=== PATIENT | female | born 1990 | race African-American/Black ===

== ENCOUNTER 2018-04-14 16:14 | Emergency (ER) | payer OTHER ==
--- NOTE | 2018-04-14 18:21 | ED ---
Abdominal Pain/Female - HPI Summary HPI Summary: This is scribdimas Alvarez documenting for attending Atilio Amor MD. Patient is a 27 y/o F w/ c/o left side abdominal and left side pelvic pain onsetting a week ago with worse pain onsetting today. Pain is rated 8/10 in the room and radiates to her back. She reports getting nauseous frequently, but does not describe this as abnormal. She denies vomiting, vaginal discharge, and vaginal bleeding. Last bowel movement was today. LNMP was 03/20/18, she reports her last time being sexually active as two weeks ago, and notes she is unsure if she is or not. On triage, nothing is noted to aggravate/alleviate Sx. Patient also reports ear pain. On triage, neck pain, hot flashes, cold flashes are reported as well but the patient does not discuss these Sx in the room. She claims Hx of ovarian cysts. No PSHx is noted. FHx of asthma, HTN, diabetes is stated. Patient notes she smokes but is trying to quit, denies alcohol and drug use. Home medications and allergies are reviewed. - History of Current Complaint Chief Complaint: EDGeneral Stated Complaint: NECK AND ABD PAIN Time Seen by Provider: 04/14/18 17:59 Hx Obtained From: Patient Hx Last Menstrual Period: 03/20/18 ?: No - patient is unsure Onset/Duration: Lasting Weeks - onset a week ago, Worse Since - worse pain reported today Timing: Constant Severity Initially: Moderate Severity Currently: Severe Pain Intensity: 7 Pain Scale Used: 0-10 Numeric - 7/10 Location: Other - leftside abdominal pain and pelvic pain Radiates: Yes Radiates to: Back Aggravating Factor(s): Nothing Alleviating Factor(s): Nothing Associated Signs and Symptoms: Positive: Back Pain, Nausea - not described as abnormal, Other: - leftside abdominal pain, leftside pelvic pain, ear pain, neck pain, hot flashes, cold flashes. Negative: Vaginal Bleeding, Vaginal Discharge, Vomiting Allergies/Adverse Reactions: Allergies Allergy/AdvReac Type Severity Reaction Status Date / Time peanut Allergy Rash And Verified 04/14/18 17:57 Itching Home Medications: Home Medications NK [No Home Medications Reported] 04/14/18 [History Confirmed 04/14/18] PMH/Surg Hx/FS Hx/Imm Hx Endocrine/Hematology History: Reports: Hx Anemia Denies: Hx Diabetes, Hx Unexplained Bleeding Cardiovascular History: Denies: Hx Congestive Heart Failure, Hx Hypertension Respiratory History: Reports: Hx Asthma History: Reports: Other Problems/Disorders - ovarian cysts Denies: Hx Dialysis, Hx Renal Disease Sensory History: Reports: Hx Contacts or Glasses Opthamlomology History: Reports: Hx Contacts or Glasses - Surgical History Surgery Procedure, Year, and Place: reports none Infectious Disease History: No Infectious Disease History: Denies: Traveled Outside the [place] in Last 30 Days - Family History Known Family History: Positive: Hypertension, Diabetes, Respiratory Disease - asthma , Other - pancreatic cancer Family History: R & n/C - Social History Alcohol Use: Occasionally Hx Substance Use: No Substance Use Type: Reports: None Hx Tobacco Use: Yes Smoking Status (MU): Light Every Day Tobacco Smoker Type: Cigarettes Review of Systems Positive: Other - hot flashes, cold flashes Positive: Ear Ache - ear pain Positive: Abdominal Pain - leftside, Nausea - not described as abnormal . Negative: Vomiting Positive: other - POSITIVE: left-sided pelvic pain NEGATIVE: vaginal discharge/ bleeding Positive: Other - back pain, neck pain All Other Systems Reviewed And Are Negative: Yes Physical Exam - Summary Physical Exam Summary: VITAL SIGNS: Reviewed. GENERAL: Patient is a well-developed and nourished female who is lying comfortable in the stretcher. Patient is not in any acute respiratory distress. HEAD AND FACE: No signs of trauma. No ecchymosis, hematomas or skull depressions. No sinus tenderness. EYES: PERRLA, EOMI x 2, No injected conjunctiva, no nystagmus. EARS: Hearing grossly intact. Ear canals and tympanic membranes are within normal limits. MOUTH: Oropharynx within normal limits. NECK: Supple, trachea is midline, no adenopathy, no JVD, no carotid bruit, no c- spine tenderness, neck with full ROM. CHEST: Symmetric, no tenderness at palpation LUNGS: Clear to auscultation bilaterally. No wheezing or crackles. CVS: Regular rate and rhythm, S1 and S2 present, no murmurs or gallops appreciated. ABDOMEN: Soft, non-tender. No signs of distention. No rebound no guarding, and no masses palpated. Bowel sounds are normal. PELVIS: Left-side pelvic pain is noted, all else normal. EXTREMITIES: FROM in all major joints, no edema, no cyanosis or clubbing. NEURO: Alert and oriented x 3. No acute neurological deficits. Speech is normal and follows commands. SKIN: Dry and warm Triage Information Reviewed: Yes Vital Signs On Initial Exam: Initial Vitals Temp Pulse Resp BP Pulse Ox 97.7 F 71 16 103/71 98 04/14/18 16:17 04/14/18 16:17 04/14/18 16:17 04/14/18 16:17 04/14/18 16:17 Vital Signs Reviewed: Yes Diagnostics - Vital Signs Vital Signs Temp Pulse Resp BP Pulse Ox 04/14/18 16:17 97.7 F 71 16 103/71 98 - Laboratory Result Diagrams: 04/14/18 18:25 04/14/18 18:24 Lab Statement: Any lab studies that have been ordered have been reviewed, and results considered in the medical decision making process. - Ultrasound No standard instances Ultrasound Interpretation Completed By: Radiologist - Transvaginal US: Involuting follicle left ovary. Trace amount of free fluid in the cul-de-sac. Blood flow is noted in both ovaries. Re-Evaluation - Re-Evaluation First Eval Re-Evaluation Time: 20:31 Change: Improved Comment: Sx of patient have greatly improved. Discussed results of tests and labs with patient. Follow-up plan is to be discharged to home and visit PCP within 3 days. Patient is agreeable with plan. Abdominal Pain Fem Course/Dx - Course Course Of Treatment: Blood test results without any significant abnormality. Urinalysis is contaminated. Therefore we will send urine for cultures. Pelvic ultrasound impression: involuting follicle of the left ovary. Trace amount of free fluid in the cul-de-sac. Blood flow is noted in both ovaries. At this point I discussed my physical exam, findings and test results with the patient and I offered a pelvic exam. The patient reports that she doesn't have any vaginal discharge or bleeding therefore she declined a pelvic exam. I also offered an abdominal and pelvic CT but patient declines. She reports she is feeling better. In the ED course the patient was given Toradol for pain and the symptoms have significantly improved. At this point the patient reports that the pain is subsided. Therefore the patient will be discharged home with follow-up with primary care physician. I discussed all the findings and test results with the patient. Patient was instructed to return to the emergency room immediately if any of the symptoms return or worsens. They were explained the possibility of an early abdominal pathology which was not detected at this time despite the physical exam and testing. They understand and agree. Abdominal exam before discharge: Soft, NT. No signs of distention. BS present. No rebound no guarding, and no masses palpated. Patient is alert and oriented and hemodynamically stable. Patient is to follow up with primary care physician in the next 2 to 3 days. Patient agree and understands. - Diagnoses Differential Diagnosis: Positive: Constipation, Diverticulitis, Ovarian Cyst, , Renal Colic, Urinary Tract Infection Provider Diagnoses: Pelvic pain Discharge - Sign-Out/Discharge Documenting (check all that apply): Patient Departure - discharge - Discharge Plan Condition: Stable Disposition: HOME Patient Education Materials: Ovarian Cyst (ED) Referrals: Nino Zapata MD [Primary Care Provider] - 3 Days Additional Instructions: Return to ED for any new or worsening symptoms. - Billing Disposition and Condition Condition: STABLE Disposition: Home
[2018-04-14 18:33] LABS: ABS Basophils 0 10^3/ul (0-0.2); ABS Eosinophils 0.2 10^3/ul (0-0.6); ABS Lymphocytes 2.5 10^3/ul (1.0-4.8); ABS Monocytes 0.5 10^3/ul (0-0.8); ABS Nucleated RBC 0 10^3/ul; Eosinophil % 2.8 % (0-6); Hematocrit 37 % (35-47); Lymphocyte % 34.8 % (25-47); Mean Corpuscular HGB Conc 35 g/dl (31-36); Mean Corpuscular Hemoglobin 32 pg (27-31); Mean Corpuscular Volume 91 fL (80-97); Nucleated Red Blood Cells % 0.2; Platelet Count 196 10^3/ul (150-450); Red Blood Count 4.08 10^6/ul (4.00-5.40); Red Cell Distribution Width 12 % (10.5-15); White Blood Count 7.3 10^3/ul (3.5-10.8)
[2018-04-14 18:54] LABS: Urine Appearance Cloudy; Urine Blood Negative (Negative); Urine Color Yellow; Urine Ketones Negative (Negative); Urine Protein Negative (Negative); Urine Red Blood Cell 1+(3-5/hpf) (Absent); Urine Specific Gravity 1.013 (1.010-1.030); Urine Urobilinogen Negative (Negative); Urine White Blood Cell 1+(6-10/hpf) (Absent)
--- NOTE | 2018-04-14 19:00 | RAD ---
Indication: Left lower quadrant pain. Real-time sonography of the pelvis was performed. The uterus measures 7.8 x 5.4 x 5.7 cm and is retroverted. Endometrial echo measures up to 13 mm. This is likely due to the phase of the patient's menstrual cycle. Trace free fluid is noted in the cul-de-sac. The right ovary measures 3.7 x 1.4 x 1.4 cm. The left ovary measures 4.7 x 2.7 x 3.3 cm. Complex involuting follicle is noted in the left ovary measuring up to 2.4 cm. Doppler interrogation demonstrates blood flow in both ovaries. IMPRESSION: Involuting follicle left ovary. Trace amount of free fluid in the cul-de-sac. Blood flow is noted in both ovaries.
[2018-04-14 19:23] LABS: EGFR Non-African American 87.4 (>60)
[2018-04-14] MEDS ORDERED: Ketorolac INJ* 30 MG/ML 1 ML VIAL IV PUSH ONE (19:31)
[2018-04-14] MEDS ORDERED: Ketorolac INJ* 30 MG/ML 1 ML VIAL ONE (19:33)
[2018-04-14 21:16] VITALS: BP 106/74
== END 2018-04-14 21:16 | disposition home or self-care (01) ==
LOC: ED 16:14
DX: R10.2 Pelvic and perineal pain (principal); M54.9 Dorsalgia, unspecified; R11.0 Nausea; H92.09 Otalgia, unspecified ear; M54.2 Cervicalgia; R68.83 Chills (without fever); N83.02 Follicular cyst of left ovary; Z91.010 Allergy to peanuts; Z82.49 Family history of ischemic heart disease and other diseases of the circulatory system; Z83.3 Family history of diabetes mellitus; Z82.5 Family history of asthma and other chronic lower respiratory diseases; Z80.0 Family history of malignant neoplasm of digestive organs; F17.210 Nicotine dependence, cigarettes, uncomplicated
CPT/HCPCS: 36415; 76830; 80053; 81003; 81015; 83690; 84702; 85025; 86140; 87086; 96374; 99283; J1885

== ENCOUNTER 2018-10-01 16:56 | Emergency (ER) | payer OTHER ==
[2018-10-01] MEDS ORDERED: NS 0.9% 1000 ML* 1,000 ML IV ONE (17:16)
--- NOTE | 2018-10-01 17:18 | ED ---
Complex/Multi-Sys Presentation - HPI Summary HPI Summary: A 27 y/o F presents to ED with c/o R ear pain onset today. Associated sx: numbness to R-side of face, back pain, dizziness, mild post-nasal drip. Aggravating factor: deep breaths. Pt thought the back pain might be due to her menstrual cycle, but the pain is much worse than normal. Pt began her menstrual cycle this AM which started as bright red blood but now its darker. She also has L-sided abd pain and nausea. She has PMHx: ovarian cysts, anemia. Pt was at work today, when she became dizzy and felt she needed to come in to be evaluated. - History Of Current Complaint Chief Complaint: EDGeneral Time Seen by Provider: 10/01/18 17:10 Hx Obtained From: Patient Onset/Duration: Still Present Timing: Constant Severity Currently: Severe - 8 out of 10. Pt is laying in bed comfortably. Aggravating Factor(s): deep breaths Associated Signs And Symptoms: Positive: Dizziness, Nausea, Abdominal Pain, Back Pain, Other - pos: R ear pain; numbness to R side of face; post nasal drip - Allergies/Home Medications Allergies/Adverse Reactions: Allergies Allergy/AdvReac Type Severity Reaction Status Date / Time peanut Allergy Rash And Verified 10/01/18 17:03 Itching PMH/Surg Hx/FS Hx/Imm Hx Previously Healthy: No Endocrine/Hematology History: Reports: Hx Anemia - not taking Fe but supposed Denies: Hx Anticoagulant Therapy, Hx Blood Disorders, Hx Diabetes, Hx Sickle Cell Disease, Hx Thyroid Disease, Hx Unexplained Bleeding Cardiovascular History: Denies: Hx Congestive Heart Failure, Hx Hypertension Respiratory History: Reports: Hx Asthma Denies: Hx Seasonal Allergies History: Reports: Other Problems/Disorders - ovarian cysts Denies: Hx Dialysis, Hx Renal Disease Sensory History: Reports: Hx Contacts or Glasses Opthamlomology History: Reports: Hx Contacts or Glasses Neurological History: Reports: Hx Headaches - often, Hx Migraine - in only - Surgical History Surgery Procedure, Year, and Place: reports none Infectious Disease History: No Infectious Disease History: Denies: Traveled Outside the [place] in Last 30 Days - Family History Known Family History: Positive: Hypertension, Diabetes, Respiratory Disease - asthma , Other - pancreatic cancer - Social History Occupation: Employed Full-time Lives: With Family Alcohol Use: Occasionally Alcohol Amount: on weekends Hx Substance Use: No Substance Use Type: Reports: None Hx Tobacco Use: Yes Smoking Status (MU): Light Every Day Tobacco Smoker Type: Cigarettes Review of Systems Positive: Ear Ache - R, Other - pos: post nasal drip Positive: Abdominal Pain, Nausea Musculoskeletal: Other - pos: back pain Neurological: Other - pos: dizziness Positive: Numbness - to R side of face All Other Systems Reviewed And Are Negative: Yes Physical Exam - Summary Physical Exam Summary: VITAL SIGNS: Reviewed. GENERAL: Patient is a well-developed and nourished FEMALE who is lying comfortable in the stretcher. Patient is not in any acute respiratory distress. HEAD AND FACE: No signs of trauma. No ecchymosis, hematomas or skull depressions. No sinus tenderness. EYES: PERRLA, EOMI x 2, No injected conjunctiva, no nystagmus. EARS: Hearing grossly intact. Ear canals and tympanic membranes are within normal limits. MOUTH: Oropharynx within normal limits. NECK: Supple, trachea is midline, no adenopathy, no JVD, no carotid bruit, no c- spine tenderness, neck with full ROM. CHEST: Symmetric, no tenderness at palpation LUNGS: Clear to auscultation bilaterally. No wheezing or crackles. CVS: Regular rate and rhythm, S1 and S2 present, no murmurs or gallops appreciated. ABDOMEN: Soft, non-tender. No signs of distention. No rebound, no guarding, and no masses palpated. Bowel sounds are normal. EXTREMITIES: FROM in all major joints, no edema, no cyanosis or clubbing. NEURO: Alert and oriented x 3. No acute neurological deficits. Speech is normal and follows commands. SKIN: Dry and warm BURN OUT SCARFING OPERATOR: Female senior nurse manager (GENOVEVA Mixon) is present during the examination. External genitalia: within normal limits. No rashes, lesions or ecchymosis. Speculum exam : vaginal orozco with no lesions, masses, or rashes. Cervix normal. No CMTs. No adnexal masses. Small amount of old blood. Triage Information Reviewed: Yes Vital Signs On Initial Exam: Initial Vitals Temp Pulse Resp BP Pulse Ox 97.8 F 76 16 128/86 98 10/01/18 17:00 10/01/18 17:00 10/01/18 17:00 10/01/18 17:00 10/01/18 17:00 Vital Signs Reviewed: Yes Diagnostics - Vital Signs Vital Signs Temp Pulse Resp BP Pulse Ox 10/01/18 17:00 97.8 F 76 16 128/86 98 - Laboratory Result Diagrams: 10/01/18 17:31 10/01/18 17:31 Lab Statement: Any lab studies that have been ordered have been reviewed, and results considered in the medical decision making process. - Ultrasound No standard instances Ultrasound Interpretation Completed By: Radiologist Summary of Ultrasound Findings: IMPRESSION: Grossly normal pelvic ultrasound. ED provider has reviewed this report. Re-Evaluation - Re-Evaluation 1 Re-Evaluation Time: 18:46 Change: Unchanged Comment: Discussing results with pt and plan for discharge. Pt voiced understanding. Complex Multi-Symp Course/Dx Assessment/Plan: A 27 y/o F presents to ED with c/o R ear pain onset today. Associated sx: numbness to R-side of face, back pain, dizziness, mild post- nasal drip. Aggravating factor: deep breaths. Pt thought the back pain might be due to her menstrual cycle, but the pain is much worse than normal. Pt began her menstrual cycle this AM which started as bright red blood but now its darker. She also has L-sided abd pain and nausea. She has PMHx: ovarian cysts, anemia. Pt was at work today, when she became dizzy and felt she needed to come in to be evaluated. Test results are without any significant abnormality, potassium level is 3.3, beta hCG is negative for . Urinalysis is negative for UTI given. Influenza A and B is negative rapid strep is negative. Transvaginal ultrasound impression: gross pelvic ultrasound. Therefore believe that the patient may have menstrual cycle. In the ED course the patient was given IV fluids, Zofran for nausea and told for pain. In the ED course I believe that the patient has an upper respiratory tract infection. Therefore the patients mother given a prescription for Sudafed And she did take ibuprofen for pain or fever. I discussed all the findings and test results with the patient. Patient was instructed to return to the emergency room immediately if any of the symptoms return or worsens. Plan of care was discussed with the patient and understands and agrees. All questions were answered at patient satisfaction. There were no further complaints or concerns. Lung exam before discharge: CTA B/L. Good air exchange. No wheezing or crackles heard. CVS: S1 and S2 present. No murmurs appreciated. Patient is alert and oriented x 3. Patient is hemodynamically stable. Patient will be discharged home with follow up PCP in the next 2-3 day - Diagnoses Provider Diagnoses: URI, acute, Menses painful Discharge - Sign-Out/Discharge Documenting (check all that apply): Patient Departure - D/C - Discharge Plan Condition: Stable Disposition: HOME Prescriptions: Ibuprofen TAB* [Motrin TAB* 600 MG] 600 mg PO Q8H PRN #20 tab PRN Reason: Pain Pseudoephedrine HCL ER TAB* [Sudafed 12 Hour*] 120 mg PO BID #8 tab.er Patient Education Materials: Ibuprofen (By mouth), Pseudoephedrine (By mouth), Upper Respiratory Infection (ED), Menorrhagia (ED) Forms: *Work Release Referrals: Nino Zapata MD [Primary Care Provider] - 3 Days Additional Instructions: RETURN TO THE ED FOR ANY WORSENING OR NEW SYMPTOMS. - Billing Disposition and Condition Condition: STABLE Disposition: Home - Attestation Statements Document Initiated by Amosibdimas: Yes Documenting Scribe: Sandra Posada Provider For Whom Arden is Documenting (Include Credential): Dr. Atilio Amor MD Scribe Attestation: Sandra Cantrell scribed for Dr. Atilio Amor MD on 10/01/18 at 1855. Scribe Documentation Reviewed: Yes Provider Attestation: The documentation as recorded by the Sandra garzon accurately reflects the service I personally performed and the decisions made by Dr. Atilio durán MD Status of Scribe Document: Viewed
[2018-10-01] MEDS ORDERED: Ondansetron INJ* 2 MG/ML VIAL IV ONE (17:35)
[2018-10-01 17:47] LABS: ABS Basophils 0 10^3/ul (0-0.2); ABS Eosinophils 0.1 10^3/ul (0-0.6); ABS Lymphocytes 1.6 10^3/ul (1.0-4.8); ABS Monocytes 0.5 10^3/ul (0-0.8); ABS Neutrophils 5.2 10^3/ul (1.5-7.7); ABS Nucleated RBC 0 10^3/ul; Eosinophil % 1.5 %; Hematocrit 36 % (35-47); Hemoglobin 12.2 g/dl (12.0-16.0); Lymphocyte % 21.7 %; Mean Corpuscular HGB Conc 34 g/dl (31-36); Mean Corpuscular Hemoglobin 31 pg (27-31); Mean Corpuscular Volume 92 fL (80-97); Mean Platelet Volume 8.2 fL (7.4-10.4); Nucleated Red Blood Cells % 0; Platelet Count 205 10^3/ul (150-450); Red Blood Count 3.89 10^6/ul (4.00-5.40); Red Cell Distribution Width 12 % (10.5-15); White Blood Count 7.4 10^3/ul (3.5-10.8)
[2018-10-01 18:00] LABS: Urine Appearance Cloudy; Urine Bacteria Absent (Absent); Urine Bilirubin Negative (Negative); Urine Blood 3+ (Negative); Urine Color Yellow; Urine Glucose Negative (Negative); Urine Ketones Negative (Negative); Urine Nitrite Negative (Negative); Urine Protein Negative (Negative); Urine Red Blood Cell Trace(0-2/hpf) (Absent); Urine Specific Gravity 1.017 (1.010-1.030); Urine Urobilinogen Negative (Negative); Urine White Blood Cell Trace(0-5/hpf) (Absent)
[2018-10-01 18:02] LABS: ALT 7 U/L (7-52); AST 13 U/L (13-39); Albumin 4.1 g/dL (3.2-5.2); Albumin/Globulin Ratio 1.8 (1-3); Alkaline Phosphatase 43 U/L (34-104); Anion Gap 3 mmol/L (2-11); BUN/Creatinine Ratio 11.3 (8-20); Blood Urea Nitrogen 8 mg/dL (6-24); C Reactive Protein < 1.00 mg/L (<8.01); CO2 Carbon Dioxide 27 mmol/L (22-32); Chloride 109 mmol/L (101-111); EGFR Non-African American 100.3 (>60); Globulin 2.3 g/dL (2-4); Glucose 80 mg/dL (70-100); Potassium 3.3 mmol/L (3.5-5.0); Sodium 139 mmol/L (135-145); Total Protein 6.4 g/dL (6.4-8.9)
[2018-10-01 18:08] LABS: HCG Pregnancy < 0.60 mIU/mL
[2018-10-01] MEDS ORDERED: Ketorolac INJ* 30 MG/ML 1 ML VIAL IV PUSH ONE (18:15)
[2018-10-01 18:58] VITALS: BP 113/77
== END 2018-10-01 18:53 | disposition home or self-care (01) ==
LOC: ED 16:56
DX: J06.9 Acute upper respiratory infection, unspecified (principal); N94.6 Dysmenorrhea, unspecified; J45.909 Unspecified asthma, uncomplicated
CPT/HCPCS: 36415; 76830; 80053; 81003; 81015; 83690; 84702; 85025; 86140; 87086; 87651; 96361; 96374; 96375; 99282; J1885; J2405

== ENCOUNTER 2024-03-15 20:14 | Inpatient (IN) ==
[2024-03-15 21:09] LABS: Urine Benzodiazepine Screen None Detected (None Detect); Urine Cannabinoids Screen None Detected (None Detect); Urine Opiates Screen None Detected (None Detect)
[2024-03-15] MEDS: Lactated Ringers 1000 ml BAG 1,000 ML IV ONE (21:43)
[2024-03-15 21:58] LABS: Hematocrit 35.3 % (35-45); Mean Corpuscular Hemoglobin 30.9 pg (27-33); Mean Corpuscular Hgb Conc 33.9 g/dL (31-36); Mean Corpuscular Volume 91.2 fL (80-97); Platelet Count 219 10^3/uL (150-450); Red Blood Count 3.87 10^6/uL (3.63-4.92); Red Cell Distribution Width 12.7 % (12-17); White Blood Count 11.1 10^3/uL (3.8-11.8)
[2024-03-15] MEDS: Prochlorperazine 5 mg/ml 2 ml VIAL (10 mg) IV PRN (22:05)
[2024-03-15] MEDS ORDERED: Lidocaine 1% VIAL 10 MG/ML 30 ML VIAL INJ PRN (23:00)
[2024-03-16] MEDS ORDERED: Glycerin ADULT 2.4 gm SUPP PR PRN (00:44)
[2024-03-16] MEDS ORDERED: Lactated Ringers 1000 ml BAG 1,000 ML IV SCH (01:00)
[2024-03-16] MEDS: Witch Hazel PAD JAR TOPICAL PRN (01:35)
[2024-03-16] MEDS: Dibucaine 1% OINT 28.35 GM TUBE PR PRN (01:35)
[2024-03-16] MEDS: Lactated Ringers 1000 ml BAG 1,000 ML IV ONE (07:25)
[2024-03-16] MEDS: Lactated Ringers 1000 ml BAG 1,000 ML IV SCH ×2 (07:25)
[2024-03-16] MEDS: Buffered Lidocaine 1% SYRIN 1 ml INTRADERM ONE (07:25)
[2024-03-16] MEDS: Oxytocin in LR 20,000 MILLI.UNIT/1,000 ML BAG IV ONE (07:28)
[2024-03-16] MEDS: Oxytocin in LR 20,000 MILLI.UNIT/1,000 ML BAG IV SCH ×2 (10:48→10:49)
[2024-03-17 07:27] LABS: ABS Eosinophils 0.1 10^3/uL (0.0-0.5); ABS Lymphocytes 1.4 10^3/uL (1.0-4.8); ABS Monocytes 0.7 10^3/uL (0.0-0.9); ABS Neutrophils 8.8 10^3/uL (1.5-7.6); Eosinophil % 1.1 %; Hematocrit 30.5 % (35-45); Hemoglobin 10.5 g/dL (11.5-14.3); Lymphocyte % 12.5 %; Mean Corpuscular Hemoglobin 31.3 pg (27-33); Mean Corpuscular Hgb Conc 34.4 g/dL (31-36); Mean Corpuscular Volume 90.9 fL (80-97); Mean Platelet Volume 8.2 fL (7.5-11.2); Platelet Count 208 10^3/uL (150-450); Red Blood Count 3.35 10^6/uL (3.63-4.92); White Blood Count 11.1 10^3/uL (3.8-11.8)
[2024-03-17 09:02] VITALS: BP 102/67
[2024-03-17] MEDS: Measles, Mumps,Rubella VACC 0.5 ML/VIAL SUBCUT ONE (14:00)
== END 2024-03-17 16:34 | disposition home or self-care (01) | DRG 560 ==
LOC: MCHOBOUT 20:14 → MCHOB 23:00
PROVIDERS: ADMIT Advanced Practice Midwife; ATTEND Advanced Practice Midwife